=== PATIENT | male | born 2000 | race Caucasian/White ===

== ENCOUNTER 2020-09-13 09:34 | Outpatient (REF) | payer OTHER, SELFPAY ==
--- NOTE | ~2020-09-13 | XR_ITS ---
EXAMINATION: BILATERAL KNEE CLINICAL INFORMATION: Pain COMPARISON: None TECHNIQUE: Frontal and lateral right and left knees. FINDINGS: No radiographic evidence of a fracture or dislocation. Joint spaces are preserved. Patellar properly positioned. There is no joint effusion. Bone alignment satisfactory. XR/XR knee LT 2V IMPRESSION: Normal radiograph of both knees
--- NOTE | ~2020-09-13 | XR_ITS ---
EXAMINATION: BILATERAL KNEE CLINICAL INFORMATION: Pain COMPARISON: None TECHNIQUE: Frontal and lateral right and left knees. FINDINGS: No radiographic evidence of a fracture or dislocation. Joint spaces are preserved. Patellar properly positioned. There is no joint effusion. Bone alignment satisfactory. XR/XR knee RT 2V IMPRESSION: Normal radiograph of both knees
[2020-09-13 10:55] LABS: Hemoglobin 14.1 g/dl (14.0-18.0); Mean Corpuscular Hemoglobin 28.1 pg (27.0-33.0); Mean Corpuscular Volume 87.6 fL (80-98); Mean Platelet Volume 9.6 fL (9.4-12.4); Platelet Count 241 X10*3/uL (160-400); Red Blood Count 5.02 X10*6/uL (4.60-5.80); Red Cell Distribution Width 12.7 % (11.0-16.0); White Blood Count 5.5 X10*3/uL (4.8-10.8)
[2020-09-13 11:03] LABS: Alanine Aminotransferase 13 U/L (0-40); Albumin Level 4.7 g/dL (3.5-5.0); Alkaline Phosphatase 49 U/L (39-117); Anion Gap 11 (12-20); Aspartate Amino Transferase 13 U/L (5-37); Bilirubin Total 0.4 mg/dL (0.0-1.0); Carbon Dioxide 29 mmol/L (22-29); Chloride 106 mmol/L (96-108); Estimated Glomerular Filt Rate > 60; Glucose Fasting 97 mg/dL (60-99); Iron 95 mcg/dL (45-160); Percent Iron Saturation 35 % (15-50); Potassium 4.9 mmol/L (3.3-5.1); Sodium 141 mmol/L (135-145); Total Iron Binding Capacity 272 mcg/dL (228-428); Unsaturated Iron Binding 177 ug/dL
[2020-09-13 11:05] LABS: Blood Urea Nitrogen 17 mg/dL (9-16); Calcium 9.6 mg/dL (8.4-10.2)
[2020-09-13 11:16] LABS: TSH reflex Free T4 1.16 uIU/mL (0.32-4.0)
== END 2020-09-13 09:35 | disposition home or self-care (01) ==
LOC: HO.XRAY 09:34
PROVIDERS: Absent Provider Physician Assistant; PCP Physician Assistant; Visit Provider Internal Medicine
DX: Z13.0 Encounter for screening for diseases of the blood and blood-forming organs and certain disorders involving the immune mechanism (principal); Z13.29 Encounter for screening for other suspected endocrine disorder; I10 Essential (primary) hypertension; D50.9 Iron deficiency anemia, unspecified; M25.561 Pain in right knee; M25.562 Pain in left knee
CPT/HCPCS: 36415; 73560; 80053; 83540; 84443; 85027

== ENCOUNTER 2020-10-04 08:08 | Outpatient (REF) | payer OTHER, SELFPAY ==
--- NOTE | ~2020-10-04 | XR_ITS ---
EXAMINATION: BILATERAL KNEE X-RAY CLINICAL INFORMATION: Knee pain COMPARISON: Previous x-ray of both knees 09/13/2020 TECHNIQUE: [place] view of both knees FINDINGS: Bone alignment is normal. No fracture or dislocation is seen. Soft tissues are normal. XR/XR knee RT 2V IMPRESSION: Normal sunrise views of the bilateral knees.
--- NOTE | ~2020-10-04 | XR_ITS ---
EXAMINATION: BILATERAL KNEE X-RAY CLINICAL INFORMATION: Knee pain COMPARISON: Previous x-ray of both knees 09/13/2020 TECHNIQUE: [place] view of both knees FINDINGS: Bone alignment is normal. No fracture or dislocation is seen. Soft tissues are normal. XR/XR knee LT 2V IMPRESSION: Normal sunrise views of the bilateral knees.
== END 2020-10-04 08:09 | disposition home or self-care (01) ==
LOC: HO.HOSX 08:08
PROVIDERS: Visit Provider Physician Assistant
DX: M25.562 Pain in left knee (principal); M25.561 Pain in right knee; M22.2X9 Patellofemoral disorders, unspecified knee
CPT/HCPCS: 73560

== ENCOUNTER → 2021-10-31 13:34 | Outpatient (BNVA) | payer OTHER, SELFPAY | PROVIDERS: PCP Physician Assistant; Visit Provider Internal Medicine | DX: Z51.81 Encounter for therapeutic drug level monitoring (principal); L98.9 Disorder of the skin and subcutaneous tissue, unspecified | CPT/HCPCS: 80305 ==

== ENCOUNTER 2023-04-29 16:06 | Outpatient (AMB) | payer OTHER, SELFPAY ==
[2023-04-29 16:09] VITALS: BP 116/72; PULSE 62; O2SAT 98; BMI 21.9
--- NOTE | 2023-04-29 16:09 | A.OFFPC_ITS ---
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 Concerns--> reports having a throat irritations . Does report having a little issues swallowing. He reports when traveling to [place] he ate something that may have scratched throat. He was evaluated at urgent care was given medication for his throat. He continues to have any irritation the back of his throat that causes him a little bit of dysphagia. Vaccine: UTD COVID Vaccine, UTD with Tdap. UTD Flu vaccine Reviewed all labs done in 2020 which were all within normal limits. [facility] Medical History Patella-femoral syndrome Surgical History History of wisdom tooth extraction Family History Father No problems noted. Mother No problems noted. (Updated 04/29/23 @ 16:40 by Emmanuel Dickens PA-C) Housing: House Alcohol intake: never Patient Tobacco Use Status: Never used Tobacco e-Cigarette/Vaping Use: Never Used Second Hand Smoke Exposure: No service: No Current occupational status: employed Current occupation: [employer] Right [employer]ed Current occupational exposures/hazards: No Cognitive needs: No Hearing needs: No Vision needs: No Questionnaire PHQ-9 Over the last 2 weeks, how often have you been bothered by any of the following problems? 1. Little interest or pleasure in doing things: not at all 2. Feeling down, depressed, or hopeless: not at all 3. Trouble falling or staying asleep, or sleeping too much: not at all 4. Feeling tired or having little energy: not at all 5. Poor appetite or overeating: not at all 6. Feeling bad about yourself - or that you are a failure or have let yourself or your family down: not at all 7. Trouble concentrating on things, such as reading the newspaper or watching television: not at all 8. Moving or speaking so slowly that other people could have noticed. Or the opposite - being so fidgety or restless that you have been moving around a lot more than usual: not at all 9. Thoughts that you would be better off or of hurting yourself in some way: not at all Total score: 0 Depression Screening Interpretation: Negative Depression Screening Done: Yes 21003 - PHQ-9 Billing: Yes Source: Developed by Drs. Devan Madrid, Mary Ellen Jean, James Noel and colleagues, with an educational stacy from [employer]. Thrive Questionnaire Date Thrive assessed: 10/16/21 I am a: Patient What is your living situation today?: I choose not to answer this question Within the past 12 months, did the food you bought not last and you didn't have the money to get more?: Never true Within the past 12 months, did you worry whether your food would run out before you got money to buy more?: Never true Do you have trouble paying for medicines?: No Do you have trouble getting transportation to medical appointments?: No Do you have trouble paying your heating and electricity bill?: No Do you have trouble taking care of your child, family member or friend?: No Do you have trouble with day-to-day activities such as bathing, preparing meals, shopping, managing finances, etc.?: No Are you currently unemployed and looking for a job?: No Are you interested in more education?: No Please select the resources that you would like help with: None Currently or been in a relationship where the following occur: no concerns reported AUDIT C Alcohol Use Questionnaire (AUDIT-C) 1. How often do you have a drink containing alcohol?: Never 3. How often do you have six or more drinks on one occasion?: Never Total Score: 0 LALI-7 AMB Questionnaire LALI-7 Date LALI - 7 assessed: 04/29/23 Feeling nervous, anxious, or on edge: 0 = Not at all Not being able to stop or control worryin = Not at all Worrying too much about different things: 0 = Not at all Trouble relaxin = Not at all Being so restless that it is hard to sit still: 0 = Not at all Becoming easily annoyed or irritable: 0 = Not at all Feeling afraid as if something awful might happen: 0 = Not at all Total LALI-7 score (0-4 normal; 5-9 mild; 10-14 moderate; 15-21 severe): 0 Source: Developed by Drs. Devan Madrid, Mary Ellen Jean, James Noel and colleagues, with an educational stacy from [employer]. LALI-7 Assessment Billing LALI-7 Assessment Tool: LALI-7 Assessment 89649 Review of Systems Const Denies excessive sweating, Denies fatigue and Denies headache(s) Eyes Denies loss of vision ENT Denies vertigo, Denies dizziness, Denies headache(s) and Denies sore throat Card Denies chest pain, Denies leg edema and Denies lightheadedness Resp Denies cough, Denies hemoptysis and Denies wheezing GI Denies abdominal pain, Denies melena, Denies constipation, Denies diarrhea and Denies vomiting Denies dysuria, Denies urinary frequency and Denies urinary urgency Musc Denies arthralgias, Denies joint swelling, Denies numbness and Denies tingling Skin/Breast Denies rash and Denies skin ulcer Neuro Denies Abnormal speech present, Denies behavioral changes, Denies vertigo, Denies dizziness, Denies headache(s), Denies loss of vision, Denies memory loss, Denies numbness and Denies tingling Psych Denies anxiety, Denies behavioral changes, Denies depression, Denies memory loss and Denies panic attacks Endo Denies excessive sweating, Denies fatigue, Denies flushing, Denies polydipsia and Denies polyuria Angelito/Lymph Denies easy bleeding and Denies easy bruising Aller/Immun Denies wheezing Physical exam (Primary Care) Vital Signs: Last Vital Signs Pulse 62 04/29/23 16:09 BP 116/72 04/29/23 16:09 Pulse Ox 98 04/29/23 16:09 Oxygen Delivery Method Room Air 04/29/23 16:09 BMI result Body Mass Index 21.9 Tobacco/Smoking Status: Tobacco use Status Tobacco use date assessed 04/29/23 04/29/23 16:20 Patient Tobacco Use Status Never used Tobacco 04/29/23 16:40 e-Cigarette/Vaping Use Never Used 04/29/23 16:40 PHQ-9: PHQ-9 Score PHQ-9: Total score 0 04/29/23 16:39 Depression Screening Interpretation: Negative Thrive Assessment: Date of Thrive Assessment Date Thrive assessed 10/16/21 04/29/23 16:11 Currently or been in a relationship where the following occur: no concerns reported Const General: healthy appearing, no acute distress, alert and awake Nutritional Appearance: well nourished Orientation/consciousness: oriented to person, oriented to place and oriented to time HENTX Head: Yes normocephalic Ears: TM's normal bilaterally General nose exam: Normal nasal mucous membranes and turbinates present Face and sinus: No sinus tenderness Mouth: Normal oral and palatal mucosa present and tongue normal Teeth and gingiva: dentition normal and gingiva normal Throat: Yes posterior oropharynx normal, Yes tonsils normal and Yes uvula midline Eyes Conjunctivae: conjunctivae normal Sclerae: sclerae normal Pupils: Equal, round and reactive pupils present EOM: EOMs intact bilaterally Direct Ophthalmoscopy: No no photophobia Neck Neck: Yes no lymphadenopathy and Yes no JVD Thyroid: Thyroid normal Carotids: no bruits Chest Chest palpation & inspection: no tenderness Resp Effort & Inspection: normal respiratory effort and not tachypneic Auscultation: no crackles, no rales, no rhonchi and no wheezes Cardio Jugular venous distension: no JVD Rate: regular rate Rhythm: regular rhythm Heart sounds: no murmurs and normal S1 and S2 Bruits: no carotid bruits Peripheral pulses: Peripheral pulses 2+ throughout GI Inspection: Yes normal to inspection, No abdominal wall ecchymosis and No visible herniation Palpation (GI): Soft to palpation, nontender, no hepatomegaly and no splenomegaly Auscultation: normal bowel sounds General: Yes no CVA tenderness Back/Spine/Pelvis Back: no CVA tenderness and No back tenderness Cervical Spine: cervical ROM normal Thoracic/Lumbar Spine: thoracic and lumbar spine normal to inspection, straight leg raise negative bilaterally, No thoraco-lumbar ROM limited and No lumbar spinal tenderness Skin General skin exam: no rashes or lesions noted and dry skin Lesions: no lesions Rashes: no rashes Wounds: no wounds Neuro General: oriented to person, oriented to place and oriented to time Cranial nerves: Yes Equal, round and reactive pupils present Cognition (Neuro): normal cognition Speech: No Abnormal speech present Gait exam (Neuro): Normal gait present Motor exam (neuro): no tremor noted Extrem Right upper extremity: full ROM Left upper extremity: full ROM Right lower extremity: full ROM; no edema Left lower extremity: full ROM; no edema Psych Appearance: grossly normal Mental Status: mental status grossly normal Speech and movement: Normal speech and movement present Affect: normal affect Attitude: cooperative Thought process: Normal thought process present Assessment and Plan Assessment & Plan (1) Annual physical exam: Code(s): Z00.00 - Encounter for general adult medical examination without abnormal findings (2) Dysphagia: Code(s): R13.10 - Dysphagia, unspecified Qualifiers: Dysphagia type: pharyngeal phase Qualified Code(s): R13.13 - Dysphagia, pharyngeal phase Plan: We did discuss evaluation for dysphagia. Offered him a barium swallow test though he declines at this time. Also considered ENT evaluation for scope. Will try an antacid to see if this will help his throat irritation. Orders: Orders Comprehensive [place]. Panel Fast 04/29/23 Z13.1 - Encounter for screening for diabetes mellitus Medications: New omeprazole 20 mg PO DAILY 30 days 30 caps 0RF R13.13 - Dysphagia, pharyngeal phase Coding Level of Care Code Est Pt Prev Care 18-39y(09141) Diagnoses Annual physical exam Z00.00 Pharyngeal dysphagia R13.13 Dysphagia type: pharyngeal phase Additional Codes LALI-7 Assessment Billing - LALI-7 Assessment Tool: LALI-7 Assessment [id number] ([id number])
== END 2023-04-29 16:53 | disposition home or self-care (01) ==
PROVIDERS: Visit Provider Physician Assistant
DX: Z00.00 Encounter for general adult medical examination without abnormal findings (principal); R13.13 Dysphagia, pharyngeal phase
CPT/HCPCS: 99395

== ENCOUNTER 2024-05-03 16:07 | Outpatient (AMB) | payer OTHER, SELFPAY ==
[2024-05-03 16:15] VITALS: BP 102/70; PULSE 80; O2SAT 99; BMI 22.7
--- NOTE | 2024-05-03 16:15 | MHC.PC.OV ---
Vital Signs 05/03/24 16:15 Height 5 ft 6 in Weight 140 lb 8 oz BMI 22.7 BP 102/70 Blood Pressure Location Lt brachial Position Sitting Pulse 80 Pulse Source Pulse Oximeter Pulse Oximetry (%) 99 Oxygen Delivery Method Room Air Intake Visit Reasons: pe Allergies No Known Allergies Allergy (Verified 04/29/23 16:37) Tobacco use date assessed: 04/29/23 Dental Screening Dental Screen Date: 04/29/23 HPI pe HPI Details Patient is a 23-year-old male here today for routine annual physical. Concerns--> having low back pain over the past 3 months. No injury. He believes his back pain is related to his posture while sitting and standing. 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 He otherwise denies any radicular symptoms down his lower extremities. Most of his back pain remains localized into his lower mid back. Vaccine: UTD COVID Vaccine, UTD with Tdap. UTD Flu vaccine Reviewed all labs done in 2020 which were all within normal limits. [facility] Medical History Patella-femoral syndrome Surgical History History of wisdom tooth extraction Family History Father No problems noted. Mother No problems noted. Social History Housing: House Alcohol intake: never Patient Tobacco Use Status: Never used Tobacco e-Cigarette/Vaping Use: Never Used Second Hand Smoke Exposure: No service: No Current occupational status: employed Current occupation: [employer]. Right Handed Current occupational exposures/hazards: No Cognitive needs: No Hearing needs: No Vision needs: No Questionnaire Thrive Questionnaire Date Thrive assessed: 10/16/21 LALI-7 AMB Questionnaire LALI-7 Date LALI - 7 assessed: 04/29/23 Source: Developed by Drs. Devan Madrid, Mary Ellen Jean, James Noel and colleagues, with an educational stacy from [employer]. Review of Systems Const Denies excessive sweating, Denies fatigue and Denies headache(s) Eyes Denies loss of vision ENT Denies vertigo, Denies dizziness, Denies headache(s) and Denies sore throat Card Denies chest pain, Denies leg edema and Denies lightheadedness Resp Denies cough, Denies hemoptysis and Denies wheezing GI Denies abdominal pain, Denies melena, Denies constipation, Denies diarrhea and Denies vomiting Denies dysuria, Denies urinary frequency and Denies urinary urgency Musc Reports back pain, Denies arthralgias, Denies joint swelling, Denies numbness and Denies tingling Skin/Breast Denies rash and Denies skin ulcer Neuro Denies Abnormal speech present, Denies behavioral changes, Denies vertigo, Denies dizziness, Denies headache(s), Denies loss of vision, Denies memory loss, Denies numbness and Denies tingling Psych Denies anxiety, Denies behavioral changes, Denies depression, Denies memory loss and Denies panic attacks Endo Denies excessive sweating, Denies fatigue, Denies flushing, Denies polydipsia and Denies polyuria Angelito/Lymph Denies easy bleeding and Denies easy bruising Aller/Immun Denies wheezing Physical exam (Primary Care) Vital Signs: Last Vital Signs Pulse 80 05/03/24 16:15 BP 102/70 05/03/24 16:15 Pulse Ox 99 05/03/24 16:15 Oxygen Delivery Method Room Air 05/03/24 16:15 BMI result Body Mass Index 22.7 Tobacco/Smoking Status: Tobacco use Status Tobacco use date assessed 04/29/23 05/03/24 16:15 Patient Tobacco Use Status Never used Tobacco 05/03/24 16:15 e-Cigarette/Vaping Use Never Used 05/03/24 16:15 Thrive Assessment: Date of Thrive Assessment Date Thrive assessed 10/16/21 05/03/24 16:15 Const General: healthy appearing, no acute distress, alert and awake Nutritional Appearance: well nourished Orientation/consciousness: oriented to person, oriented to place and oriented to time [facility] Head: Yes normocephalic Ears: TM's normal bilaterally General nose exam: Normal nasal mucous membranes and turbinates present Face and sinus: No sinus tenderness Mouth: Normal oral and palatal mucosa present and tongue normal Teeth and gingiva: dentition normal and gingiva normal Throat: Yes posterior oropharynx normal, Yes tonsils normal and Yes uvula midline Eyes Conjunctivae: conjunctivae normal Sclerae: sclerae normal Pupils: Equal, round and reactive pupils present EOM: EOMs intact bilaterally Direct Ophthalmoscopy: No no photophobia Neck Neck: Yes no lymphadenopathy and Yes no JVD Thyroid: Thyroid normal Carotids: no bruits Chest Chest palpation & inspection: no tenderness Resp Effort & Inspection: normal respiratory effort and not tachypneic Auscultation: no crackles, no rales, no rhonchi and no wheezes Cardio Jugular venous distension: no JVD Rate: regular rate Rhythm: regular rhythm Heart sounds: no murmurs and normal S1 and S2 Bruits: no carotid bruits Peripheral pulses: Peripheral pulses 2+ throughout GI Inspection: Yes normal to inspection, No abdominal wall ecchymosis and No visible herniation Palpation (GI): Soft to palpation, nontender, no hepatomegaly and no splenomegaly Auscultation: normal bowel sounds General: Yes no CVA tenderness Back/Spine/Pelvis Other: SOME PAIN REPORTED WITH STRAIGHT LEG RAISE OF RIGHT SIDE. Back: no CVA tenderness and No back tenderness Cervical Spine: cervical ROM normal Thoracic/Lumbar Spine: thoracic and lumbar spine normal to inspection, straight leg raise negative bilaterally, No thoraco-lumbar ROM limited and No lumbar spinal tenderness Skin General skin exam: no rashes or lesions noted and dry skin Lesions: no lesions Rashes: no rashes Wounds: no wounds Neuro General: oriented to person, oriented to place and oriented to time Cranial nerves: Yes Equal, round and reactive pupils present Cognition (Neuro): normal cognition Speech: No Abnormal speech present Gait exam (Neuro): Normal gait present Motor exam (neuro): no tremor noted Extrem Right upper extremity: full ROM Left upper extremity: full ROM Right lower extremity: full ROM; no edema Left lower extremity: full ROM; no edema Psych Appearance: grossly normal Mental Status: mental status grossly normal Speech and movement: Normal speech and movement present Affect: normal affect Attitude: cooperative Thought process: Normal thought process present Office Procedures Flu Questionnaire Does the patient have a severe egg allergy?: No Does the patient have severe life threatening allergies?: No Does the patient have a fever or illness today?: No Has the patient ever had Guillain-[place] Syndrome?: No Has the patient ever had any past reaction to a flu shot?: No Immunizations Fluarix Triv [id number] (PF) 45 mcg (15 mcg x 3)/0.5 mL IM syringe Performing Provider: Emmanuel Dickens PA-C [facility] Administered by: JOHAN Bautista on 05/03/24 16:23 Dose Route Admin Location Dispensed Lot Number Expiration Date 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 Eligible 05/03/24 Private Coding Level of Care Code Est Pt Prev Care 18-39y(94455) Diagnoses Annual physical exam Z00.00 Chronic midline low back pain without sciatica M54.50; G89.29 Back pain laterality: midline Chronicity: chronic Sciatica presence: without sciatica Screening for diabetes mellitus (DM) Z13.1 Assessment & Plan Assessment & Plan (1) Annual physical exam: Code(s): Z00.00 - Encounter for general adult medical examination without abnormal findings Category: Medical Plan: For HPI (2) Low back pain: Code(s): M54.50 - Low back pain, unspecified Category: Medical Qualifiers: Back pain laterality: midline Chronicity: chronic Sciatica presence: without sciatica Qualified Code(s): M54.50 - Low back pain, unspecified; G89.29 - Other chronic pain Plan: Patient reports a 3 month history intermittent lower back pain. He reports no injury. He is interested in getting an x-ray of his low back to evaluate. He is not interested in physical therapy at this time. (3) Screening for diabetes mellitus (DM): Code(s): Z13.1 - Encounter for screening for diabetes mellitus Category: Medical Plan: As per HPI Orders: Orders Influenza [id number] Immunization 05/03/24 Z23 - Encounter for immunization Comprehensive [place]. Panel Fast 05/03/24 Z13.1 - Encounter for screening for diabetes mellitus Complete Blood Count no Diff 05/03/24 Z13.1 - Encounter for screening for diabetes mellitus XR lumbar spine 2-3V 05/03/24 G89.29 - Other chronic pain, M54.50 - Low back pain, unspecified
== END 2024-05-03 16:38 | disposition home or self-care (01) ==
PROVIDERS: PCP Physician Assistant; Visit Provider Physician Assistant
DX: Z00.00 Encounter for general adult medical examination without abnormal findings (principal); M54.50 Low back pain, unspecified; G89.29 Other chronic pain; Z13.1 Encounter for screening for diabetes mellitus

== ENCOUNTER → 2024-05-03 16:07 | Outpatient (BNVA) | payer BC, SELFPAY | PROVIDERS: PCP Physician Assistant; Visit Provider Physician Assistant | DX: Z00.00 Encounter for general adult medical examination without abnormal findings (principal); Z23 Encounter for immunization; G89.29 Other chronic pain; M54.50 Low back pain, unspecified | CPT/HCPCS: 90471; 90656 ==